=== PATIENT | male | born 1985 | race American Indian/Alaskan Native ===

== ENCOUNTER 2021-09-01 12:20 | Emergency (ER) | payer SELFPAY ==
--- NOTE | 2021-09-01 | DI.RAD.S_ITS ---
PROCEDURE: XR LUMBAR SPINE 2-3V INDICATIONS: PAIN TECHNIQUE: 2 views of the lumbar spine were acquired. COMPARISON: [facility], CR, XR THORACIC SPINE 2V, 09/01/2021, 13:30. [facility], CR, XR RIBS LT MIN 3V W CXR1V, 09/01/2021, 13:30. FINDINGS: Bones: Minimal anterior wedge deformity is seen of the T11 level, without acute features. This patient has transitional anatomy, with only 11 pairs of ribs seen on the accompanying thoracic spine plain film series. 5 [id number] vertebrae are present. There is normal bony alignment. No suspicious bony lesions. The disc heights are well preserved. Soft tissues: Overlying bowel gas pattern is normal. No suspicious soft tissue calcifications. IMPRESSION: Minimal anterior wedge deformity of T11, without acute features. Please correlate with focal tenderness. If it would be helpful for clinical management decision making, please consider a dedicated limited [id number] CT through the region. Dictated by: Alfredo Cox M.D. on 09/01/2021 at 12:52 Approved by: Alfredo Cox M.D. on 09/01/2021 at 12:54
[2021-09-01 13:01] VITALS: BP 161/98; PULSE 78; RESP 16; TEMP 36.5; O2SAT 97; BMI 24.4
--- NOTE | 2021-09-01 13:11 | ED_ITS ---
HPI - Back Pain/Injury <TUCKER Frances - Last Filed: 09/01/21 15:09> General Chief Complaint: Back Pain/Injury Stated Complaint: BACK PAIN Time Seen by Provider: 09/01/21 13:02 History of Present Illness HPI Narrative: A 36-year-old male presents to the emergency department today for left sided thoracic and lumbar pain after he fell on his mid-back while skateboarding last night. Patient denies hitting his head in the fall, states he was going up a wrap when he lost his balance went approximately 3 ft in the air and landed directly on his back in position. He reports that lying down is the most comfortable, bending forward is the worst, he reports that he has muscle spasms on the left side of his thoracic lumbar spine. He denies any weakness, he denies any loss of bowel or bladder, he denies any recent fever or illness, he denies any hematuria, shortness of breath, chest pain, dizziness, or numbness or tingling. He reports that when he bends forward his pain she is up to an 8 or 9/10, if he remains in a supine position his pain is not very bad. Related Data Previous Rx's Medication Instructions Recorded methocarbamol 500 mg tablet 500 mg PO Q8H PRN #14 tab 09/01/21 oxycodone-acetaminophen 5 mg-325 1 tab PO Q8H PRN #10 tab 09/01/21 mg tablet (Percocet) Allergies Allergy/AdvReac Type Severity Reaction Status Date / Time No Known Drug Allergies Allergy Verified 09/01/21 13:42 Review of Systems <TUCKER Frances - Last Filed: 09/01/21 15:09> Review of Systems Narrative: General: denies fever, chills Head/Neck: denies headache, neck pain Eyes: denies visual changes, eye pain Cardio: denies chest pain, palpitations Respiratory: denies shortness of breath, cough GI: denies abdominal pain, nausea, vomiting, or diarrhea : denies dysuria, hematuria MSK: denies joint pain, muscle weakness, endorses having muscle spasms on his left thoracic and lumbar spine. Skin: denies rash, itching Neuro: denies numbness, tingling Exam <TUCKER Frances - Last Filed: 09/01/21 15:09> Narrative Exam Narrative: Independently reviewed vitals signs and nursing notes. General: Awake, alert, nontoxic, no cardiorespiratory distress Head/Neck: Atraumatic, neck full range of motion Eyes: EOMI, conjunctiva normal Nose: nares patent, no rhinorrhea Mouth/Throat: moist mucus membranes, posterior pharynx normal, no oral lesions Cardio: Regular rate and rhythm, no peripheral edema Respiratory: respirations unlabored without wheezing, stridor, or rales. No retractions. GI: Abdomen soft, nontender MSK: Moves all extremities, neurovascularly intact, range of motion intact, no point tenderness over cervical, thoracic, lumbar and sacral spine, complains of muscle tenderness to the left of his thoracic and lumbar spine Skin: Normal capillary refill, no rash, no ecchymosis, no erythema, no wounds Neuro: Normal speech and cognition, normal gait Initial Vital Signs Initial Vital Signs: Vital Signs Temperature 97.7 F 09/01/21 13:01 Pulse Rate 78 09/01/21 13:01 Respiratory Rate 16 09/01/21 13:01 Blood Pressure 161/98 H 09/01/21 13:01 Pulse Oximetry 97 09/01/21 13:01 <Christopher Cornejo DO - Last Filed: 09/02/21 08:33> Initial Vital Signs Initial Vital Signs: Vital Signs Temperature 97.7 F 09/01/21 13:01 Pulse Rate 78 09/01/21 13:01 Respiratory Rate 16 09/01/21 13:01 Blood Pressure 161/98 H 09/01/21 13:01 Pulse Oximetry 97 09/01/21 13:01 Course <TUCKER Frances - Last Filed: 09/01/21 15:09> Orders Ordered: Discontinued Medications Cyclobenzaprine HCl (Cyclobenzaprine 10 Mg Tablet) 10 mg PO NOW ONE Stop: 09/01/21 13:12 Last Admin: 09/01/21 13:26 Dose: 10 mg Documented by: MADNIE Oxycodone/Acetaminophen (Oxycodone/Acetaminophen 5/325 Tablet) 1 tab PO NOW ONE Stop: 09/01/21 13:12 Last Admin: 09/01/21 13:26 Dose: 1 tab Documented by: MANDIE Vital Signs Vital signs: Vital Signs - 8 hr 09/01/21 13:01 09/01/21 14:37 Temperature 97.7 F Pulse Rate 78 64 Respiratory Rate 16 19 Blood Pressure 161/98 H 137/80 Pulse Oximetry 97 98 <Christopher Cornejo DO - Last Filed: 09/02/21 08:33> Orders Ordered: Discontinued Medications Cyclobenzaprine HCl (Cyclobenzaprine 10 Mg Tablet) 10 mg PO NOW ONE Stop: 09/01/21 13:12 Last Admin: 09/01/21 13:26 Dose: 10 mg Documented by: MANDIE Oxycodone/Acetaminophen (Oxycodone/Acetaminophen 5/325 Tablet) 1 tab PO NOW ONE Stop: 09/01/21 13:12 Last Admin: 09/01/21 13:26 Dose: 1 tab Documented by: MANDIE Vital Signs Vital signs: Vital Signs - 8 hr 09/01/21 13:01 09/01/21 14:37 Temperature 97.7 F Pulse Rate 78 64 Respiratory Rate 16 19 Blood Pressure 161/98 H 137/80 Pulse Oximetry 97 98 MDM - Back Pain/Injury <TUCKER Frances - Last Filed: 09/01/21 15:09> Imaging Data x ray thoracic: Radiologist's Impression: PROCEDURE: XR THORACIC SPINE 2V INDICATIONS: Left-sided back pain from injury last night TECHNIQUE: 2 views of the thoracic spine were acquired. COMPARISON: [facility], , XR LUMBAR SPINE 2-3V, 09/01/2021, 13:30. FINDINGS: Bones: 11 pairs of ribs are noted, and appear intact where visualized. There is minimal anterior wedge deformity seen of T10 and T11, without acute features. No suspicious lytic or blastic lesions are seen. Soft tissues: No paravertebral stripe thickening. IMPRESSION: Minimal T11 and T12 anterior wedge deformities, without acute features. If there is point tenderness (or other clinical suspicion for a fracture not seen on these images) then a dedicated limited tdrla-om-baic CT could be considered for further evaluation, if clinically appropriate. Dictated by: Alfredo Cox M.D. on 09/01/2021 at 12:54 Approved by: Alfredo Cox M.D. on 09/01/2021 at 12:55 xray ribs: Radiologist's Impression: PROCEDURE: XR RIBS LT MIN 3V W CXR1V INDICATIONS: Left-sided back pain from injury last night TECHNIQUE: 2 views of the left ribs were acquired, along with a single view chest. COMPARISON: [facility], CR, XR LUMBAR SPINE 2-3V, 09/01/2021, 13:30. [facility], CR, XR THORACIC SPINE 2V, 09/01/2021, 13:30. FINDINGS: Surgical changes and devices: None. Bones and chest wall: A marker is placed upon the area of clinical concern. Within this region, no displaced rib fracture or other significant rib abnormality can be seen. No rib fractures are seen elsewhere. No suspicious bony lesions. Overlying soft tissues appear unremarkable. Lungs and pleura: No pleural effusions or pneumothorax. Lungs appear clear. Mediastinum: Mediastinal contours appear normal. Heart size is normal. IMPRESSION: No displaced rib fracture or pneumothorax can be seen. Dictated by: Alfredo Cox M.D. on 09/01/2021 at 12:50 Approved by: Alfredo Cox M.D. on 09/01/2021 at 12:52 MDM Narrative Medical decision making narrative: 36-year-old male presents to the emergency department after falling off of a skateboard from approximately 3 ft in the air yesterday with left-sided mid back pain today with spasms. X-ray of his left ribs, thoracic and lumbar spine show no displaced rib fracture or pneumothorax, it does show a minimal anterior wedge deformity of T10 and T11 without acute features. Patient did not have any point tenderness over his thoracic or lumbar spine. Multiple etiologies of back pain considered including; Epidural abscess, cauda equina, mass occupying lesion, and other considered and are very unlikely considering that his pain is most likely due to trauma. He did not have any loss of bowel or bladder, does not have any weakness is afebrile, nontoxic appearing with full range of motion. He is sent home with Percocet and methocarbamol for muscle spasms and states understanding to follow-up at the [facility] where he has insurance within 1 week. Discharge Plan Departure Patient Disposition: Home Clinical Impression: Lumbar back pain Thoracic back pain Qualifiers: Chronicity: acute Back pain laterality: left Qualified Code(s): M54.6 - Pain in thoracic spine Instructions: DI for Back Spasm Activity Restrictions/Additional Instructions: *You have been diagnosed with a back injury, with minimal T11 and T12 anterior wedge deformities without acute features. This means may be these are from a previous injury. I am reassured that you did not have point tenderness over these vertebrae on exam. Please follow-up at the [facility] where you would like to be seen within a week for follow-up. You do not have any acute fractures. I sent 2 prescriptions over to [facility] for you to draft roller picker which should last you a week. I hope that you feel better soon, ice can be helpful, alternating with heat. Try not to lay down for too long, getting up will be way too painful. Try to stay semi mobile most of the day to avoid the painful getting up and getting moving pain. *What to do: *Please continue to take your regular medications as directed. [x] New medication prescriptions sent to your pharmacy: [[facility] Murillo ] [ ] New medication written as a paper prescription [ ] No new medications given *Please follow up with your primary care provider in 2-3 days, call for an appointment. Let them know you were seen in the Emergency Department and that we ask that you be seen in follow up. We will electronically transmit a record of today's note if your PCP is in our system *If you do not have a primary care provider please contact the [facility] Resource line at [phone]. They will ask some questions about your medical history and help get you set up with a doctor in the community. *Return to Emergency Department if you should have any new, worsening or concerning symptoms, such as [fever greater than 101F, chills, worsening pain, persistent vomiting or other bothersome symptoms] PROCEDURE: XR THORACIC SPINE 2V INDICATIONS: Left-sided back pain from injury last night TECHNIQUE: 2 views of the thoracic spine were acquired. COMPARISON: [facility], CR, XR LUMBAR SPINE 2-3V, 09/01/2021, 13:30. FINDINGS: Bones: 11 pairs of ribs are noted, and appear intact where visualized. There is minimal anterior wedge deformity seen of T10 and T11, without acute features. No suspicious lytic or blastic lesions are seen. Soft tissues: No paravertebral stripe thickening. IMPRESSION: Minimal T11 and T12 anterior wedge deformities, without acute features. If there is point tenderness (or other clinical suspicion for a fracture not seen on these images) then a dedicated limited [id number]-[id number] CT could be considered for further evaluation, if clinically appropriate. Dictated by: Alfredo Cox M.D. on 09/01/2021 at 12:54 Approved by: Alfredo Cox M.D. on 09/01/2021 at 12:[address] [id number] ReportSigned Patient: Nghia Lopez PMR#: [id number]: 1985Acct:[id number]/Sex: 36 / MDate of Service: 09/01/21Loc: EDAccession Number: [id number] Procedure: XR lumbar spine 2-3V Ordering Provider: Suki Chappell PROCEDURE: XR LUMBAR SPINE 2-3V INDICATIONS: PAIN TECHNIQUE: 2 views of the lumbar spine were acquired. COMPARISON: [facility], CR, XR THORACIC SPINE 2V, 09/01/2021, 13:30. [facility], CR, XR RIBS LT MIN 3V W CXR1V, 09/01/2021, 13:30. FINDINGS: Bones: Minimal anterior wedge deformity is seen of the T11 level, without acute features. This patient has transitional anatomy, with only 11 pairs of ribs seen on the accompanying thoracic spine plain film series. 5 [id number]-[id number]-[id number] vertebrae are present. There is normal bony alignment. No suspicious bony lesions. The disc heights are well preserved. Soft tissues: Overlying bowel gas pattern is normal. No suspicious soft tissue calcifications. IMPRESSION: Minimal anterior wedge deformity of T11, without acute features. Please correlate with focal tenderness. If it would be helpful for clinical management decision making, please consider a dedicated limited [id number]-du-jaeo CT through the region. Dictated by: Alfredo Cox M.D. on 09/01/2021 at 12:52 Approved by: Alfredo Cox M.D. on 09/01/2021 at 12:54 Prescriptions: New oxycodone-acetaminophen [Percocet] 5-325 mg tablet 1 tab PO Q8H PRN (Reason: pain) Qty: 10 RF: 0 methocarbamol 500 mg tablet 500 mg PO Q8H PRN (Reason: muscle spasm) Qty: 14 RF: 0 Referrals: Lorelei Hall MD [Primary Care Provider] - <Christopher Cornejo DO - Last Filed: 09/02/21 08:33> Cosign ED Attending Griffinature Attestation: I was immediately available in the department for consultation. This documentation has been reviewed and I agree with assessment and plan. Supervised by Christopher Cornejo DO
[2021-09-01] MEDS: OXYCODONE/ACETAMINOPHEN 5/325 TABLET 1 TAB PO (13:26)
[2021-09-01] MEDS: CYCLOBENZAPRINE 10 MG TABLET PO (13:26)
[2021-09-01 14:37] VITALS: BP 137/80; PULSE 64; RESP 19; O2SAT 98
== END 2021-09-01 14:40 | disposition home or self-care (01) ==
PROVIDERS: Emergency Provider Nurse Practitioner Critical Care Medicine; PCP Family Medicine
DX: M54.50 Low back pain, unspecified (principal); M54.6 Pain in thoracic spine; V00.131A Fall from skateboard, initial encounter
CPT/HCPCS: 71101; 72070; 72100; 99283

== ENCOUNTER 2022-06-19 18:28 | Emergency (ER) | payer SELFPAY ==
[2022-06-19 18:30] VITALS: BP 159/87; PULSE 71; RESP 16; TEMP 37.3; O2SAT 99; BMI 24.4
--- NOTE | 2022-06-19 18:41 | DI.RAD.S_ITS ---
PROCEDURE: XR CHEST 1V INDICATIONS: chest pain TECHNIQUE: One view of the chest was acquired. COMPARISON: [facility], CR, XR THORACIC SPINE 2V, 09/01/2021, 13:30. FINDINGS: Surgical changes and devices: None. Lungs and pleura: Lungs are clear. No pleural effusions or pneumothorax. Mediastinum: Mediastinal contours appear normal. Heart size is normal. Bones and chest wall: No suspicious bony lesions. Overlying soft tissues appear unremarkable. IMPRESSION: No acute cardiopulmonary abnormality. Dictated by: Jam Chester M.D. on 06/19/2022 at 20:19 Approved by: Jam Chester M.D. on 06/19/2022 at 20:21
--- NOTE | 2022-06-19 18:48 | DI.CT.S_ITS ---
PROCEDURE: CT HEAD/BRAIN WO CON INDICATIONS: Seizure like activity + LOC TECHNIQUE: Noncontrast 4.5 mm thick angled axial sections acquired from the foramen magnum to the vertex, with coronal and sagittal reformats. For radiation dose reduction, the following was used: automated exposure control, adjustment of mA and/or kV according to patient size. COMPARISON: None. FINDINGS: Image quality: Excellent. CSF spaces: Basal cisterns are patent. No extra-axial fluid collections. Ventricles are normal in size and shape. Brain: No midline shift. No intracranial masses or hemorrhage. Donnelly-white matter interface is normal. Skull and face: Calvarium and visualized facial bones are intact, without suspicious lesions. Sinuses: Visualized sinuses and mastoids are clear. IMPRESSION: No acute intracranial abnormality. Dictated by: Jam Chester M.D. on 06/19/2022 at 19:11 Approved by: Jam Chester M.D. on 06/19/2022 at 19:13
--- NOTE | 2022-06-19 18:54 | ED_ITS ---
HPI - Syncope General Chief Complaint: Syncope Stated Complaint: Fainted, EMS advised to come in Time Seen by Provider: 06/19/22 18:38 Source: patient Mode of arrival: Ambulatory Limitations: no limitations History of Present Illness HPI narrative: This is a 36-year-old male with no pertinent past medical history presenting to the emergency department due to a LOC just prior to arrival. Patient states that he was eating dinner with some friends after smoking marijuana and had an episode of LOC although he is ?was having a clear thought the whole time?. He also states that his patient's described him as being ?clenched up?. Patient states that he has been seen by his primary care provider for vague sensation of a right side abdominal discomfort for the last few days were his primary care prior do urinalysis which showed hematuria and advised to take ibuprofen for suspected kidney stones. Patient does not report any injuries to the extremities. Denies any chest pain, shortness of breath, nausea, vomiting, or any other concerning signs or symptoms. No history of previous loss of consciousness or seizures in the past. Related Data Previous Rx's Medication Instructions Recorded methocarbamol 500 mg tablet 500 mg PO Q8H PRN muscle spasm #14 09/01/21 tabs oxycodone-acetaminophen 5 mg-325 1 tab PO Q8H PRN pain #10 tabs 09/01/21 mg tablet (Percocet) Allergies Allergy/AdvReac Type Severity Reaction Status Date / Time No Known Drug Allergies Allergy Verified 09/01/21 13:42 Review of Systems Review of Systems Narrative: GENERAL: Denies chills, fatigue, malaise, fever, sweats. HEENT: Denies sinus pain, ear pain, sore throat, difficulty swallowing, dizziness. RESPIRATORY: Denies dyspnea, cough, wheezing, hemoptysis, sputum. CARDIOVASCULAR: Denies chest pain, palpitations, orthopnea, edema, GASTROINTESTINAL: Denies nausea, vomiting, abdominal pain, diarrhea, constipation, melena. : Denies dysuria, frequency, incontinence, hematuria, urinary retention. MUSCULOSKELETAL: denies weakness, joint pain, or bony pain SKIN: Denies rash, skin lesions, or other NEUROLOGIC: Reports loss of consciousness. Denies weakness, headache, numbness, change in speech, confusion, incoordination. PSYCHIATRIC: No concerning psychosocial issues. 12 point review of systems is negative except for those stated above Patient History Social History Smoking Status: Never smoker Smoking Status: Never smoker alcohol intake frequency: a few times a week Substance Use Type: marijuana Exam Narrative Exam Narrative: GENERAL: Well-developed patient, in mild distress. HEAD: Atraumatic. Normocephalic. EYES: Pupils equal round and reactive. Extraocular motions intact. No scleral icterus. No injection or drainage. ENT: Nose without bleeding, purulent drainage. Throat without erythema, tonsillar hypertrophy or exudate. Airway patent. NECK: Trachea midline. Non tender CARDIOVASCULAR: Regular rate and rhythm without murmurs, gallops, or rubs. RESPIRATORY: Clear to auscultation. Breath sounds equal bilaterally. No wheezes, rales, or rhonchi. GASTROINTESTINAL: Abdomen soft, non-tender, nondistended. EXTREMITIES: No edema or joint tenderness. BACK: Nontender without deformity or crepitance. No flank tenderness. NEURO: AOx3. Cranial nerves 2-12 intact. No focal neuro deficits noted on exam. SKIN: No rash or erythema of visible areas Initial Vital Signs Initial Vital Signs: Vital Signs Temperature 99.1 F 06/19/22 18:30 Pulse Rate 71 06/19/22 18:30 Respiratory Rate 16 06/19/22 18:30 Blood Pressure 159/87 H 06/19/22 18:30 Pulse Oximetry 99 06/19/22 18:30 Oxygen Delivery Method 06/19/22 18:30 Course Orders Ordered: ED Orders 06/19/22 18:40 Complete Blood Count AUTO DIFF Stat Comprehensive Metabolic Panel Stat Lipase Stat Magnesium Stat Partial Thromboplastin Time Stat Prothrombin Time INR Stat Troponin & CK Cardiac Panel Stat 06/19/22 18:41 XR chest 1V Stat EKG-12 Lead Stat 06/19/22 18:48 CT head/brain wo con Stat Complete Blood Count AUTO DIFF Stat Comprehensive Metabolic Panel Stat Urine Drug Screen, Rapid Stat EKG-12 Lead Stat Vital Signs Vital signs: Vital Signs - 8 hr 06/19/22 18:30 06/19/22 20:19 Temperature 99.1 F Pulse Rate 71 65 Respiratory Rate 16 16 Blood Pressure 159/87 H Pulse Oximetry 99 98 Oxygen Delivery Method Room Air Room Air MDM - Syncope Lab Data Result diagrams: 06/19/22 18:40 06/19/22 18:40 Labs: Lab Results 06/19/22 06/19/22 06/19/22 Range/Units 18:40 18:40 18:40 WBC 6.8 (4.5-11.0) X10^3/uL RBC 4.09 L (4.5-5.9) X10^6/uL Hgb 13.7 (13.5-17.5) g/dL Hct 40.2 L (41-53) % MCV 98.2 (80-100) fL MCH 33.5 (26-34) PG MCHC 34.2 (30-36) % RDW 13.1 (11.6-14.8) % Plt Count 200 (150-400) X10^3/uL Neut % (Auto) 68.7 (50-75) % Lymph % (Auto) 24.5 L (25-40) % [place] % (Auto) 4.1 (3-14) % Eos % (Auto) 2.0 (2-4) % Baso % (Auto) 0.7 (0-2) % Neut # (Auto) 4700 (9049-7312) /uL Lymph # (Auto) 1700 (1288-3315) /uL [place] # (Auto) 300 (0-900) /uL Eos # (Auto) 100 (0-450) /uL Baso # (Auto) 0 (0-100) /uL PT 12.5 (10.1-12.7) SECONDS INR 1.1 (0.9-1.3) APTT 27 (26.4-36.2) SECONDS Sodium 134 L (137-145) mmol/L Potassium 3.7 (3.4-5.1) mmol/L Chloride 104 (98-107) mmol/L Carbon Dioxide 25 (22-32) mmol/L BUN 18 (9-20) mg/dL Creatinine 0.80 (0.66-1.25) mg/dL Estimated GFR > 60 (>60) mL/min BUN/Creatinine Ratio 22.5 H (6-22) Glucose 190 H (70-100) mg/dL Calcium 8.5 (8.4-10.2) mg/dL Magnesium 1.9 (1.6-2.3) mg/dL Total Bilirubin 0.6 (0.2-1.3) mg/dL AST 30 (17-59) IU/L ALT 24 (<50) IU/L Alkaline Phosphatase 54 (38-126) U/L Total Creatine Kinase 142 (55-170) U/L CK-MB (CK-2) 1.89 (<2.37) ng/mL CK-MB (CK-2) Rel Index 1.3 L (1.5-5.0) % Troponin I < 0.012 (0.01-0.034) ng/mL Total Protein 7.0 (6.3-8.2) g/dL Albumin 4.3 (3.5-5.0) g/dL Globulin 2.7 (1.7-4.1) g/dL Albumin/Globulin Ratio 1.6 (1.0-2.8) Lipase 111 (23-300) U/L U Opiates 300ng/mL cut (Negative) Ur Oxycodone Screen (Negative) Urine Methadone Screen (Negative) Ur Barbiturates Screen (Negative) U Tricyclic Antidepress (Negative) Ur Phencyclidine Scrn (Negative) Ur Amphetamines Screen (Negative) U Methamphetamines Scrn (Negative) Ur MDMA Scrn (Ecstasy) (Negative) U Benzodiazepines Scrn (Negative) Urine Cocaine Screen (Negative) U Marijuana (THC) Screen (Negative) 06/19/22 Range/Units 19:19 WBC (4.5-11.0) X10^3/uL RBC (4.5-5.9) X10^6/uL Hgb (13.5-17.5) g/dL Hct (41-53) % MCV (80-100) fL MCH (26-34) PG MCHC (30-36) % RDW (11.6-14.8) % Plt Count (150-400) X10^3/uL Neut % (Auto) (50-75) % Lymph % (Auto) (25-40) % [place] % (Auto) (3-14) % Eos % (Auto) (2-4) % Baso % (Auto) (0-2) % Neut # (Auto) (9588-1790) /uL Lymph # (Auto) (7677-6918) /uL [place] # (Auto) (0-900) /uL Eos # (Auto) (0-450) /uL Baso # (Auto) (0-100) /uL PT (10.1-12.7) SECONDS INR (0.9-1.3) APTT (26.4-36.2) SECONDS Sodium (137-145) mmol/L Potassium (3.4-5.1) mmol/L Chloride (98-107) mmol/L Carbon Dioxide (22-32) mmol/L BUN (9-20) mg/dL Creatinine (0.66-1.25) mg/dL Estimated GFR (>60) mL/min BUN/Creatinine Ratio (6-22) Glucose (70-100) mg/dL Calcium (8.4-10.2) mg/dL Magnesium (1.6-2.3) mg/dL Total Bilirubin (0.2-1.3) mg/dL AST (17-59) IU/L ALT (<50) IU/L Alkaline Phosphatase (38-126) U/L Total Creatine Kinase (55-170) U/L CK-MB (CK-2) (<2.37) ng/mL CK-MB (CK-2) Rel Index (1.5-5.0) % Troponin I (0.01-0.034) ng/mL Total Protein (6.3-8.2) g/dL Albumin (3.5-5.0) g/dL Globulin (1.7-4.1) g/dL Albumin/Globulin Ratio (1.0-2.8) Lipase (23-300) U/L U Opiates 300ng/mL cut Negative (Negative) Ur Oxycodone Screen Negative (Negative) Urine Methadone Screen Negative (Negative) Ur Barbiturates Screen Negative (Negative) U Tricyclic Antidepress Negative (Negative) Ur Phencyclidine Scrn Negative (Negative) Ur Amphetamines Screen Negative (Negative) U Methamphetamines Scrn Negative (Negative) Ur MDMA Scrn (Ecstasy) Negative (Negative) U Benzodiazepines Scrn Negative (Negative) Urine Cocaine Screen Negative (Negative) U Marijuana (THC) Screen Positive H (Negative) Imaging Data CT scan - head: Radiologist's Impression: [address] [address] [address] Scan Report Signed Patient: Nghia Lopez MR#: [id number] : 1985 Acct:[id number] Age/Sex: 36 / M Date of Service: 06/19/22 Loc: ED Accession Number: [id number] ?? Procedure: CT head/brain wo con Ordering Provider: Kd Blas P.A-C PROCEDURE:? CT HEAD/BRAIN WO CON ? INDICATIONS:? Seizure like activity + LOC ? TECHNIQUE:? Noncontrast 4.5 mm thick angled axial sections acquired from the foramen magnum to the vertex, with coronal and sagittal reformats.? For radiation dose reduction, the following was used:? automated exposure control, adjustment of mA and/or kV according to patient size.? ? COMPARISON:? None. ? FINDINGS:? Image quality:? Excellent.? ? CSF spaces:? Basal cisterns are patent.? No extra-axial fluid collections.? Ventricles are normal in size and shape.? ? Brain:? No midline shift.? No intracranial masses or hemorrhage.? Donnelly-white matter interface is normal.? ? Skull and face:? Calvarium and visualized facial bones are intact, without suspicious lesions.? ? Sinuses:? Visualized sinuses and mastoids are clear.? ? IMPRESSION:? No acute intracranial abnormality. ? ? Dictated by: Jam Chester M.D. on 06/19/2022 at 19:11 ? ? Approved by: Jam Chester M.D. on 06/19/2022 at 19:13 ? Chest x-ray: Radiologist's Impression: [place] [address] XRay Report Signed Patient: Nghia Lopez MR#: [id number] : 1985 Acct:[id number] Age/Sex: 36 / M Date of Service: 06/19/22 Loc: ED Accession Number: [id number] ?? Procedure: XR chest 1V Ordering Provider: Kd Blas P.A-C PROCEDURE:? XR CHEST 1V ? INDICATIONS:? chest pain ? TECHNIQUE:? One view of the chest was acquired.? ? COMPARISON:? [facility], [facility], XR THORACIC SPINE 2V, 09/01/2021, 13:30. ? FINDINGS:? ? Surgical changes and devices:? None.? ? Lungs and pleura:? Lungs are clear.? No pleural effusions or pneumothorax.? ? Mediastinum:? Mediastinal contours appear normal.? Heart size is normal.? ? Bones and chest wall:? No suspicious bony lesions.? Overlying soft tissues appear unremarkable.? ? IMPRESSION:? No acute cardiopulmonary abnormality. ? ? ? Dictated by: Jam Chester M.D. on 06/19/2022 at 20:19 ? ? Approved by: Jam Chester M.D. on 06/19/2022 at 20:21 ? ECG Data Interpretation: EKG is normal sinus rhythm rate 66 and free of any signs of ischemia or ectopy. No ST segmental elevation or depression. No T wave inversions MDM Narrative Medical decision making narrative: This is an otherwise the healthy 36-year-old male presents to the emergency department due to loss of consciousness just prior to arrival. Patient describes a vague history of being ?clenched up? during loss of consciousness although describes no other symptoms concerning for possible seizure. Patient did not describe any chest pain concerning for ACS and did not describe any focal neuro deficits concerning for CVA. Lab work was unremarkable. Troponin within normal limits. CT head showed no evidence of intracranial abnormality. EKG showed no evidence of cardiac abnormality. No evidence anemia, infection, electrolyte deficiency or any other lab work in abnormality. UDS positive for only marijuana as patient described. Discharge Plan Departure Patient Disposition: Home Clinical Impression: Vasovagal syncope Instructions: DI for Syncope in Adults (Fainting) Activity Restrictions/Additional Instructions: Thank you for coming to the [facility] Emergency Department today. Your CT head and chest x-ray were unremarkable. There is no evidence of any kind of brain bleed or lung abnormality. The EKG showed no evidence of any kind of heart attack. Your lab work was also showing no acute abnormalities. I recommend you continue to rest to you feel better. Please follow-up with your primary care provider as you have been doing for the workup of the possible kidney stone you have. I hope you feel better soon. Prescriptions: No Action oxycodone-acetaminophen [Percocet] 5-325 mg tablet 1 tab PO Q8H PRN (Reason: pain) Qty: 10 0RF methocarbamol 500 mg tablet 500 mg PO Q8H PRN (Reason: muscle spasm) Qty: 14 0RF Referrals: Lorelei Hall MD [Primary Care Provider] -
[2022-06-19 18:56] LABS: Add Manual Diff / Slide Review NO; Basophils Absolute Auto 0 /uL (0-100); Basophils Percent Auto 0.7 % (0-2); Eosinophils Absolute Auto 100 /uL (0-450); Hematocrit 40.2 % (41-53); Hemoglobin 13.7 g/dL (13.5-17.5); Lymphocytes Absolute Auto 1700 /uL (1100-4500); Lymphocytes Percent Auto 24.5 % (25-40); Mean Corpuscular HGB Conc 34.2 % (30-36); Mean Corpuscular Hemoglobin 33.5 PG (26-34); Mean Corpuscular Volume 98.2 fL (80-100); Monocytes Absolute Auto 300 /uL (0-900); Monocytes Percent Auto 4.1 % (3-14); Neutrophils Absolute Auto 4700 /uL (1500-7000); Neutrophils Percent Auto 68.7 % (50-75); Platelet Count 200 X10^3/uL (150-400); Red Blood Cell Count 4.09 X10^6/uL (4.5-5.9); Red Cell Distribution Width 13.1 % (11.6-14.8); White Blood Cell Count 6.8 X10^3/uL (4.5-11.0)
[2022-06-19 18:57] LABS: INR 1.1 (0.9-1.3); Prothrombin Time 12.5 SECONDS (10.1-12.7)
[2022-06-19 19:00] LABS: PTT Partial Thromboplastin Tim 27 SECONDS (26.4-36.2)
[2022-06-19 19:04] LABS: Alanine Aminotransferase 24 IU/L (<50); Albumin 4.3 g/dL (3.5-5.0); Albumin Globulin Ratio 1.6 (1.0-2.8); Alkaline Phosphatase 54 U/L (38-126); Aspartate Aminotransferase 30 IU/L (17-59); BUN Creatinine Ratio 22.5 (6-22); Bilirubin Total 0.6 mg/dL (0.2-1.3); Blood Urea Nitrogen 18 mg/dL (9-20); Calcium 8.5 mg/dL (8.4-10.2); Carbon Dioxide 25 mmol/L (22-32); Chloride 104 mmol/L (98-107); Creatine Kinase 142 U/L (55-170); Estimated Glomerular Filt Rate > 60 mL/min (>60); Globulin 2.7 g/dL (1.7-4.1); Glucose 190 mg/dL (70-100); HEMOLYSIS < 15 (0-50); Lipase 111 U/L (23-300); Magnesium 1.9 mg/dL (1.6-2.3); Potassium 3.7 mmol/L (3.4-5.1); Sodium 134 mmol/L (137-145)
[2022-06-19 19:14] LABS: Troponin I < 0.012 ng/mL (0.01-0.034)
[2022-06-19 19:18] LABS: CKMB % Relative Index 1.3 % (1.5-5.0); Creatine Kinase MB 1.89 ng/mL (<2.37)
[2022-06-19 19:31] LABS: UR Morphine/Opiate cutoff 300 Negative (Negative); Ur Creatinine Normal (Normal); Ur Specific Gravity Normal (Normal); Urine Amphetamines Negative (Negative); Urine Barbiturates Negative (Negative); Urine Benzodiazepines Negative (Negative); Urine Cocaine Negative (Negative); Urine MDMA Negative (Negative); Urine Methadone Negative (Negative); Urine Methamphetamines Negative (Negative); Urine Oxycodone Negative (Negative); Urine Phencyclidine Negative (Negative); Urine Tetrahydrocannabinol Positive (Negative); Urine Tricyclic Antidepressant Negative (Negative); Urine pH Normal (Normal)
[2022-06-19 20:19] VITALS: PULSE 65; RESP 16; O2SAT 98
== END 2022-06-19 20:25 | disposition home or self-care (01) ==
PROVIDERS: Emergency Provider Physician Assistant Medical; PCP Family Medicine
DX: R55 Syncope and collapse (principal); R07.9 Chest pain, unspecified; R56.9 Unspecified convulsions
CPT/HCPCS: 36415; 70450; 71045; 80053; 80305; 82550; 82553; 83690; 83735; 84484; 85025; 85610; 85730; 93005; 93010; 99284

== ENCOUNTER 2022-07-03 10:03 | Emergency (ER) | payer SELFPAY ==
[2022-07-03 10:07] VITALS: BP 158/112; PULSE 72; RESP 14; TEMP 36.2; O2SAT 99; BMI 24.4
[2022-07-03 10:45] LABS: Add Manual Diff / Slide Review NO; Basophils Absolute Auto 0 /uL (0-100); Basophils Percent Auto 0.8 % (0-2); Eosinophils Absolute Auto 100 /uL (0-450); Eosinophils Percent Auto 1.9 % (2-4); Hematocrit 43.8 % (41-53); Hemoglobin 15.4 g/dL (13.5-17.5); Lymphocytes Absolute Auto 1400 /uL (1100-4500); Mean Corpuscular HGB Conc 35.1 % (30-36); Mean Corpuscular Hemoglobin 34.2 PG (26-34); Mean Corpuscular Volume 97.4 fL (80-100); Monocytes Absolute Auto 300 /uL (0-900); Monocytes Percent Auto 5.6 % (3-14); Neutrophils Absolute Auto 4200 /uL (1500-7000); Neutrophils Percent Auto 68.7 % (50-75); Platelet Count 194 X10^3/uL (150-400); White Blood Cell Count 6.1 X10^3/uL (4.5-11.0)
[2022-07-03 11:07] LABS: Chloride 102 mmol/L (98-107); HEMOLYSIS < 15 (0-50)
[2022-07-03 11:09] LABS: Alanine Aminotransferase 29 IU/L (<50); Albumin 4.6 g/dL (3.5-5.0); Albumin Globulin Ratio 1.5 (1.0-2.8); Alkaline Phosphatase 67 U/L (38-126); Aspartate Aminotransferase 28 IU/L (17-59); BUN Creatinine Ratio 25.3 (6-22); Bilirubin Total 0.5 mg/dL (0.2-1.3); Blood Urea Nitrogen 20 mg/dL (9-20); Calcium 8.7 mg/dL (8.4-10.2); Carbon Dioxide 27 mmol/L (22-32); Estimated Glomerular Filt Rate > 60 mL/min (>60); Globulin 3.1 g/dL (1.7-4.1); Glucose 111 mg/dL (70-100); Lipase 56 U/L (23-300); Potassium 4.8 mmol/L (3.4-5.1); Sodium 137 mmol/L (137-145); Total Protein 7.7 g/dL (6.3-8.2)
--- NOTE | 2022-07-03 12:21 | DI.CT.S_ITS ---
PROCEDURE: CT ABDOMEN PELVIS W CON INDICATIONS: rlq pain, feels week, hematuria TECHNIQUE: After the administration of intravenous contrast, axial sections acquired from the lung bases to the pubic symphysis. Coronal and sagittal reformats were performed. For radiation dose reduction, the following was used: automated exposure control, adjustment of mA and/or kV according to patient size. COMPARISON: None. FINDINGS: Image quality: Excellent. Lung bases: Unremarkable. Heart: No significant findings. ABDOMEN: Liver: Unremarkable. Gallbladder: Unremarkable. Biliary ducts: Unremarkable. Pancreas: Unremarkable. Spleen: Unremarkable. Adrenal Glands: Unremarkable. Kidneys and Ureters: Unremarkable. Stomach and Bowel: Scattered diverticulosis without evidence of diverticulitis. Peritoneum: No abnormal intraperitoneal fluid. No free air. Ventral Wall: No hernias. Abdominal Nodes: No retroperitoneal or mesenteric adenopathy by size criteria. Vessels: Aorta and inferior vena cava are normal in size. PELVIS: Pelvic Organs: Unremarkable. Bladder: Unremarkable. Pelvic Nodes: No enlarged lymph nodes. Miscellaneous: No hernias are seen. Bones: Unremarkable. IMPRESSION: 1. No findings which explain the patient's right lower quadrant pain. 2. Mild diverticulosis. Dictated by: Boby Domínguez M.D. on 07/03/2022 at 14:09 Approved by: Boby Domínguez M.D. on 07/03/2022 at 14:13
[2022-07-03] MEDS: SODIUM CHLORIDE 0.9% 500 ML 1000 ML IV (13:04)
--- NOTE | 2022-07-03 13:08 | ED_ITS ---
HPI - Abdominal Pain <TUCKER Frances - Last Filed: 07/03/22 15:47> General Chief Complaint: Abdominal Pain Stated Complaint: ABD PAIN LOWER RIGHT SIDE Time Seen by Provider: 07/03/22 12:20 Source: patient Mode of arrival: Ambulatory History of Present Illness HPI narrative: This is a 36-year-old male with no pertinent past medical history presenting to the emergency department?for ongoing right inguinal pain and hematuria with concern for kidney stones. Patient states that he has been seen by his primary care provider for vague sensation of a right side abdominal discomfort approximately 3-4 weeks ago and his primary care provider completed a urinalysis which showed hematuria and was advised to take ibuprofen for suspected kidney stones.?This was a few weeks ago. Patient was seen in the emergency department on 06/19/2022 for syncope and had this pain at that time without any abdominal imaging. Patient denies any nausea vomiting or changes to her stool, denies any STIs. Denies any chest pain, shortness of breath, nausea, vomiting, or any other concerning signs or symptoms.??He states that his pain has only gotten worse, he feels fatigued, and nauseated but had vomiting. Patient denies any blood in his stool but endorses having hemorrhoids, internal hemorrhoids and sometimes there external which is causing rectal pain. He denies having chills, denies any new sexual partners, denies any history of abdominal surgery or this pain in the past. Related Data Previous Rx's Medication Instructions Recorded methocarbamol 500 mg tablet 500 mg PO Q8H PRN muscle spasm #14 09/01/21 tabs oxycodone-acetaminophen 5 mg-325 1 tab PO Q8H PRN pain #10 tabs 09/01/21 mg tablet (Percocet) amoxicillin 875 mg-potassium 1 tab PO BID 7 days #14 tabs 07/03/22 clavulanate 125 mg tablet hydrocortisone acetate 25 mg 25 mg RI Q12H PRN hemorrhoids 2 07/03/22 rectal suppository weeks #12 ea Allergies Allergy/AdvReac Type Severity Reaction Status Date / Time No Known Drug Allergies Allergy Verified 07/03/22 10:09 Review of Systems <TUCKER Frances - Last Filed: 07/03/22 15:47> Review of Systems Narrative: Review of systems is negative for acute abnormalities unless otherwise noted in HPI Patient History <TUCKER Frances - Last Filed: 07/03/22 15:47> Social History Smoking Status: Never smoker Smoking Status: Never smoker alcohol intake frequency: holidays/special occasions only Substance Use Type: marijuana Exam <TUCKER Frances - Last Filed: 07/03/22 15:47> Narrative Exam Narrative: Reviewed vitals signs and nursing notes. General: cooperative, comfortable, in no acute distress, well groomed HEENT: symmetrical facial expressions, moist mucous membranes Cardiovascular: regular rate and rhythm, no peripheral edema, warm extremities Respiratory: normal effort, able to speak in complete sentences, without wheezing, stridor, or abnormal breath sounds. No retractions or tachypnea. GI: abdomen soft, tender to palpation in his right inguinal region, Rovsing's negative psoas sign negative, no tenderness at for McBurney point, nondistended, without masses, rebound tenderness or exquisite tenderness with exam. CVA tenderness on the right External hemorrhoids are present without signs of infection, they are soft. Without scrotal edema or unilateral changes, exam without abnormality or tenderness. MSK: moves all extremities, neurovascularly intact, no weakness, normal tone Skin: brisk capillary refill, without pallor or erythema Neuro: normal speech and cognition, A&O x3, ambulatory, clear speech Psych: mental status is grossly normal, congruent mood, normal affect, pleasant and cooperative Initial Vital Signs Initial Vital Signs: Vital Signs Temperature 97.1 F L 07/03/22 10:07 Pulse Rate 72 07/03/22 10:07 Respiratory Rate 14 07/03/22 10:07 Blood Pressure 158/112 H 07/03/22 10:07 Pulse Oximetry 99 07/03/22 10:07 Oxygen Delivery Method 07/03/22 10:07 <Nahomy Foreman DO - Last Filed: 07/09/22 08:12> Initial Vital Signs Initial Vital Signs: Vital Signs Temperature 97.1 F L 07/03/22 10:07 Pulse Rate 72 07/03/22 10:07 Respiratory Rate 14 07/03/22 10:07 Blood Pressure 158/112 H 07/03/22 10:07 Pulse Oximetry 99 07/03/22 10:07 Oxygen Delivery Method 07/03/22 10:07 Course <TUCKER Frances - Last Filed: 07/03/22 15:47> Orders Ordered: Discontinued Medications Amoxicillin/Clavulanate Potassium (Amoxicillin/Clav 875/125 Mg) 1 tab PO NOW ONE Stop: 07/03/22 14:34 Last Admin: 07/03/22 14:46 Dose: 1 tab Documented By: AT Sodium Chloride (Normal Saline 0.9%) 500 mls @ 1,000 mls/hr IV BOLUS ONE Stop: 07/03/22 13:20 Last Infusion: 07/03/22 14:43 Dose: 0 mls/hr Documented By: Admin: 07/03/22 13:04 Dose: 1,000 mls/hr Documented By: LISA Ketorolac Tromethamine (Ketorolac 30 Mg/Ml Vial) 30 mg IV NOW ONE Stop: 07/03/22 12:52 Last Admin: 07/03/22 14:22 Dose: Not Given Documented By: MERVIN Ondansetron HCl (Ondansetron 4 Mg/2 Ml Inj) 4 mg IV NOW ONE Stop: 07/03/22 12:52 Last Admin: 07/03/22 14:22 Dose: Not Given Documented By: MERVIN Oxycodone/Acetaminophen (Oxycodone/Acetaminophen 5/325 Tablet) 2 tab PO NOW ONE Stop: 07/03/22 12:52 Last Admin: 07/03/22 14:22 Dose: Not Given Documented By: MERVIN Vital Signs Vital signs: Vital Signs - 8 hr 07/03/22 10:07 07/03/22 14:56 Temperature 97.1 F L Pulse Rate 72 67 Respiratory Rate 14 18 Blood Pressure 158/112 H 155/95 H Pulse Oximetry 99 99 Oxygen Delivery Method Room Air Room Air <Nahomy Foreman DO - Last Filed: 07/09/22 08:12> Orders Ordered: Discontinued Medications Amoxicillin/Clavulanate Potassium (Amoxicillin/Clav 875/125 Mg) 1 tab PO NOW ONE Stop: 07/03/22 14:34 Last Admin: 07/03/22 14:46 Dose: 1 tab Documented By: AT Sodium Chloride (Normal Saline 0.9%) 500 mls @ 1,000 mls/hr IV BOLUS ONE Stop: 07/03/22 13:20 Last Infusion: 07/03/22 14:43 Dose: 0 mls/hr Documented By: Admin: 07/03/22 13:04 Dose: 1,000 mls/hr Documented By: LISA Ketorolac Tromethamine (Ketorolac 30 Mg/Ml Vial) 30 mg IV NOW ONE Stop: 07/03/22 12:52 Last Admin: 07/03/22 14:22 Dose: Not Given Documented By: MERVIN Ondansetron HCl (Ondansetron 4 Mg/2 Ml Inj) 4 mg IV NOW ONE Stop: 07/03/22 12:52 Last Admin: 07/03/22 14:22 Dose: Not Given Documented By: MERVIN Oxycodone/Acetaminophen (Oxycodone/Acetaminophen 5/325 Tablet) 2 tab PO NOW ONE Stop: 07/03/22 12:52 Last Admin: 07/03/22 14:22 Dose: Not Given Documented By: MERVIN Vital Signs Vital signs: Vital Signs - 8 hr 07/03/22 10:07 07/03/22 14:56 Temperature 97.1 F L Pulse Rate 72 67 Respiratory Rate 14 18 Blood Pressure 158/112 H 155/95 H Pulse Oximetry 99 99 Oxygen Delivery Method Room Air Room Air MDM - Abdominal Pain <TUCKER Frances - Last Filed: 07/03/22 15:47> Lab Data Result diagrams: 07/03/22 10:30 07/03/22 10:30 Labs: Lab Results 07/03/22 07/03/22 07/03/22 Range/Units 10:30 10:30 11:59 WBC 6.1 (4.5-11.0) X10^3/uL RBC 4.50 (4.5-5.9) X10^6/uL Hgb 15.4 (13.5-17.5) g/dL Hct 43.8 (41-53) % MCV 97.4 (80-100) fL MCH 34.2 H (26-34) PG MCHC 35.1 (30-36) % RDW 13.0 (11.6-14.8) % Plt Count 194 (150-400) X10^3/uL Neut % (Auto) 68.7 (50-75) % Lymph % (Auto) 23.0 L (25-40) % [place] % (Auto) 5.6 (3-14) % Eos % (Auto) 1.9 L (2-4) % Baso % (Auto) 0.8 (0-2) % Neut # (Auto) 4200 (9056-7022) /uL Lymph # (Auto) 1400 (8691-9755) /uL [place] # (Auto) 300 (0-900) /uL Eos # (Auto) 100 (0-450) /uL Baso # (Auto) 0 (0-100) /uL Sodium 137 (137-145) mmol/L Potassium 4.8 (3.4-5.1) mmol/L Chloride 102 (98-107) mmol/L Carbon Dioxide 27 (22-32) mmol/L BUN 20 (9-20) mg/dL Creatinine 0.79 (0.66-1.25) mg/dL Estimated GFR > 60 (>60) mL/min BUN/Creatinine Ratio 25.3 H (6-22) Glucose 111 H (70-100) mg/dL Calcium 8.7 (8.4-10.2) mg/dL Total Bilirubin 0.5 (0.2-1.3) mg/dL AST 28 (17-59) IU/L ALT 29 (<50) IU/L Alkaline Phosphatase 67 (38-126) U/L Total Protein 7.7 (6.3-8.2) g/dL Albumin 4.6 (3.5-5.0) g/dL Globulin 3.1 (1.7-4.1) g/dL Albumin/Globulin Ratio 1.5 (1.0-2.8) Lipase 56 (23-300) U/L Urine RBC None seen (0-5/HPF) Urine WBC 0-1/hpf (0-5/HPF) Ur Squamous Epith Cells 0-1 /hpf (0-5/HPF) Amorphous Sediment 1+ Urine Bacteria Few (2-10) H (None) Ur Culture Indicated? Specimen cultured Point of care testing: Urine Dip Bedside Urine Glucose Negative Bedside Urine Bilirubin - Negative Bedside Urine Ketone - Negative Urine Specific [place] 1.020 Bedside Urine Occult Blood ++ Bedside Urine pH 7.5 Bedside Urine Protein - Negative Bedside Urine Urobilinogen - Negative Bedside Urine Nitrite - Negative Bedside Urine Leukocytes - Negative Esterase Imaging Data CT scan - abdomen/pelvis: My Impression: PROCEDURE:? CT ABDOMEN PELVIS W CON ? INDICATIONS:? rlq pain, feels week, hematuria ? TECHNIQUE:? After the administration of intravenous contrast, axial sections acquired from the lung bases to the pubic symphysis.? Coronal and sagittal reformats were performed.? For radiation dose reduction, the following was used:? automated exposure control, adjustment of mA and/or kV according to patient size.? ? COMPARISON:? None. ? FINDINGS:? Image quality:? Excellent.? ? Lung bases:? Unremarkable. Heart:? No significant findings. ? ABDOMEN: Liver:? Unremarkable.? ? Gallbladder:? Unremarkable.? ? Biliary ducts:? Unremarkable.? ? Pancreas:? Unremarkable.? ? Spleen:? Unremarkable.? ? Adrenal Glands:? Unremarkable.? ? Kidneys and Ureters:? Unremarkable.? ? ? Stomach and Bowel:? Scattered diverticulosis without evidence of diverticulitis. Peritoneum:? No abnormal intraperitoneal fluid.? No free air.? ? Ventral Wall: ? No hernias.? Abdominal Nodes:? No retroperitoneal or mesenteric adenopathy by size criteria.? Vessels:? Aorta and inferior vena cava are normal in size.? ? PELVIS: Pelvic Organs:? Unremarkable.? ? Bladder:? Unremarkable.? ? Pelvic Nodes: No enlarged lymph nodes.? Miscellaneous: No hernias are seen. ? ? ? Bones:? Unremarkable.? IMPRESSION:? ? 1. No findings which explain the patient's right lower quadrant pain. ? 2. Mild diverticulosis.? ? ? Dictated by: Boby Domínguez M.D. on 07/03/2022 at 14:09 ? ? Approved by: Boby Domínguez M.D. on 07/03/2022 at 14:13 ? [facility] Narrative Medical decision making narrative: This is a 37-year-old male without any significant medical history, denies any abdominal surgeries who presents to the emergency department complaining of right inguinal/flank pain for the last 4 weeks with hematuria tested at his primary care provider approximately 3 weeks ago without any abdominal imaging completed. Patient presents today and has hematuria, tenderness to his right inguinal region without rebound tenderness, or tenderness over McBurney's point, CVA tenderness or abnormal findings CT abdominal in imaging. His lab work is grossly unremarkable in comparison to his previous lab work on 06/19/2022, patient does not have any leukocytosis or anemia, no electrolyte abnormalities, creatinine is 0.79 and is stable compared with prior, lipase is 56. His urine microscopy resulted and shows bacteria without WBCs or RBCs. His CT abdomen pelvis is negative for acute findings to explain the right lower quadrant pain, he does have mild diverticulosis without diverticulitis. His appendix was not mentioned on his abdominal CT report however he does not have rebound tenderness. This is most likely a UTI but patient also has prostate tenderness and hemorrhoids with rectal pain. Will treat with Augmentin to cover for both acute cystitis and colitis/proctitis and a referral to general surgeons for colonoscopy and Urology for his hematuria/acute cystitis was placed. Patient's urine dip showed hematuria but microscopy did not show any significant blood in his urine. Patient denied any dysuria or urinary frequency. No peritoneal signs on abdominal exam. Patient remains p.o. tolerant. Serial abdominal exam without increase in abdominal pain. Given history and exam, low suspicion for acute abdominal process, such as acute appendicitis, cholecystitis, pancreatitis, perforated viscus, atypical appendicitis, colitis, diverticulitis or torsion. Extensive conversation about ER return precautions and need for close follow-up. <Nahomy Foreman, DO - Last Filed: 07/09/22 08:12> Lab Data Labs: Lab Results 07/03/22 07/03/22 07/03/22 Range/Units 10:30 10:30 11:59 WBC 6.1 (4.5-11.0) X10^3/uL RBC 4.50 (4.5-5.9) X10^6/uL Hgb 15.4 (13.5-17.5) g/dL Hct 43.8 (41-53) % MCV 97.4 (80-100) fL MCH 34.2 H (26-34) PG MCHC 35.1 (30-36) % RDW 13.0 (11.6-14.8) % Plt Count 194 (150-400) X10^3/uL Neut % (Auto) 68.7 (50-75) % Lymph % (Auto) 23.0 L (25-40) % [place] % (Auto) 5.6 (3-14) % Eos % (Auto) 1.9 L (2-4) % Baso % (Auto) 0.8 (0-2) % Neut # (Auto) 4200 (6389-2155) /uL Lymph # (Auto) 1400 (8406-7505) /uL [place] # (Auto) 300 (0-900) /uL Eos # (Auto) 100 (0-450) /uL Baso # (Auto) 0 (0-100) /uL Sodium 137 (137-145) mmol/L Potassium 4.8 (3.4-5.1) mmol/L Chloride 102 (98-107) mmol/L Carbon Dioxide 27 (22-32) mmol/L BUN 20 (9-20) mg/dL Creatinine 0.79 (0.66-1.25) mg/dL Estimated GFR > 60 (>60) mL/min BUN/Creatinine Ratio 25.3 H (6-22) Glucose 111 H (70-100) mg/dL Calcium 8.7 (8.4-10.2) mg/dL Total Bilirubin 0.5 (0.2-1.3) mg/dL AST 28 (17-59) IU/L ALT 29 (<50) IU/L Alkaline Phosphatase 67 (38-126) U/L Total Protein 7.7 (6.3-8.2) g/dL Albumin 4.6 (3.5-5.0) g/dL Globulin 3.1 (1.7-4.1) g/dL Albumin/Globulin Ratio 1.5 (1.0-2.8) Lipase 56 (23-300) U/L Urine RBC None seen (0-5/HPF) Urine WBC 0-1/hpf (0-5/HPF) Ur Squamous Epith Cells 0-1 /hpf (0-5/HPF) Amorphous Sediment 1+ Urine Bacteria Few (2-10) H (None) Ur Culture Indicated? Specimen cultured Point of care testing: Urine Dip Bedside Urine Glucose Negative Bedside Urine Bilirubin - Negative Bedside Urine Ketone - Negative Urine Specific [place] 1.020 Bedside Urine Occult Blood ++ Bedside Urine pH 7.5 Bedside Urine Protein - Negative Bedside Urine Urobilinogen - Negative Bedside Urine Nitrite - Negative Bedside Urine Leukocytes - Negative Esterase Discharge Plan Departure Patient Disposition: Home Clinical Impression: Colitis Abdominal right lower quadrant tenderness Qualifiers: Presence of rebound: not specified Qualified Code(s): R10.813 - Right lower quadrant abdominal tenderness Hemorrhoids Qualifiers: Hemorrhoid type: unspecified Qualified Code(s): K64.9 - Unspecified hemorrhoids Acute cystitis Qualifiers: Hematuria presence: with hematuria Qualified Code(s): N30.01 - Acute cystitis with hematuria Instructions: Blood in Urine, Hydrocortisone Rectal, DI for Proctitis Activity Restrictions/Additional Instructions: *You have been diagnosed with right lower quadrant pain and hemorrhoids which may be causing proctitis or proctocolitis since her pain has gone on this long. Please take this antibiotic twice a day for the next 7 days. Please use suppositories as needed for hemorrhoidal pain or bleeding. Please take 800 mg of ibuprofen with food and water every 8 hours as needed for your pain, you may take Tylenol in addition to this as needed. Please call and set up an appointment with Dr. Mondragon for urology evaluation. Please also call and schedule an appointment with [facility] for a colonoscopy/evaluation of your right lower quadrant pain. Please evaluate your insurance and follow-up with your primary care provider for outpatient imaging or referrals as needed. I hope you start feeling better soon. Remember to stay hydrated and to return if this does not get any better. *What to do: *Please continue to take your regular medications as directed. [ x] New medication prescriptions sent to your pharmacy: [[facility] ] [ ] New medication written as a paper prescription [ ] No new medications given *Please follow up with your primary care provider in 2-3 days, call for an appointment. Let them know you were seen in the Emergency Department and that we asked that you be seen for follow-up. We will electronically transmit a record of today's note if your PCP is in our system *If you do not have a primary care provider please contact [phone] to establish care with one of the [facility] primary care providers. *Return to Emergency Department if you should have any new, worsening, or concerning symptoms, such as [fever greater than 101F, chills, worsening pain, persistent vomiting or other bothersome symptoms]. Prescriptions: New amoxicillin-pot clavulanate 875-125 mg tablet 1 tab PO BID 7 Days Qty: 14 0RF hydrocortisone acetate 25 mg suppository 25 mg RI Q12H PRN (Reason: hemorrhoids) 14 Days Qty: 12 0RF No Action oxycodone-acetaminophen [Percocet] 5-325 mg tablet 1 tab PO Q8H PRN (Reason: pain) Qty: 10 0RF methocarbamol 500 mg tablet 500 mg PO Q8H PRN (Reason: muscle spasm) Qty: 14 0RF Referrals: Viet Freeman MD [Physician] - Winston Mondragon MD [Physician] - Lorelei Hall MD [Primary Care Provider] - Visit Report Forms: Patient Portal/API <Nahomy Foreman DO - Last Filed: 07/09/22 08:12> Cosign ED Attending Griffinature Attestation: I was immediately available in the department for consultation. Documentation has been reviewed. I agree with assessment and plan.
[2022-07-03 13:59] LABS: Amorphous Sediment Urine 1+; Bacteria Urine Few (2-10); Culture Indicated Urine Specimen Cultured; RBC Urine None Seen (0-5/HPF); Squamous Epithelial Cell Urine 0-1 /HPF (0-5/HPF); WBC Urine 0-1/HPF (0-5/HPF)
[2022-07-03] MEDS: AMOXICILLIN/CLAV 875/125 MG 1 TAB PO (14:46)
[2022-07-03 14:56] VITALS: BP 155/95; PULSE 67; RESP 18; O2SAT 99
== END 2022-07-03 14:57 | disposition home or self-care (01) ==
PROVIDERS: Emergency Medicine; Emergency Provider Nurse Practitioner Critical Care Medicine; PCP Family Medicine
DX: R10.31 Right lower quadrant pain (principal); K64.9 Unspecified hemorrhoids; N30.01 Acute cystitis with hematuria; K52.9 Noninfective gastroenteritis and colitis, unspecified
CPT/HCPCS: 36415; 74177; 80053; 81003; 81015; 83690; 85025; 87086; 93005; 96360; 96361; 99284; Q9967

== ENCOUNTER 2022-07-24 20:10 | Emergency (ER) | payer SELFPAY ==
[2022-07-24 20:17] VITALS: BP 173/109; PULSE 67; RESP 22; TEMP 36.2; O2SAT 99; BMI 24.4
[2022-07-24 20:25] VITALS: BP 150/97
[2022-07-24 21:47] LABS: Bacteria Urine None Seen; Culture Indicated Urine Cult Not Indicated; RBC Urine 10-30/HPF (0-5/HPF); Squamous Epithelial Cell Urine 0-1 /HPF (0-5/HPF); WBC Urine 1-5/HPF (0-5/HPF)
--- NOTE | 2022-07-25 00:34 | ED_ITS ---
HPI - Abdominal Pain General Chief Complaint: Abdominal Pain Stated Complaint: Antibiotic refill Time Seen by Provider: 07/24/22 21:31 Source: patient Mode of arrival: Ambulatory Limitations: no limitations History of Present Illness HPI narrative: This is a 37-year-old male no known medical issues who presents with right lower quadrant discomfort that was present on his last visit on 07/03/2022. Patient was seen had lab work, CT abdomen pelvis which was negative and urinalysis which did not show infection on culture. Patient's did improve with Augmentin but did not resolve. He denies fevers or chills. No chest pain or shortness of breath, no nausea or vomiting, no diarrhea, no constipation, no dysuria, urgency or frequency, no penile discharge. No testicular pain he states right inguinal region. Patient states he did not have his prostate checked when he was here. He states he is not sexually active currently. No known prior STIs. Patient states he felt much with antibiotics pain improved and almost completely resolved but has returned after finishing them and been off them for a week or 2. Related Data Previous Rx's Medication Instructions Recorded methocarbamol 500 mg tablet 500 mg PO Q8H PRN muscle spasm #14 09/01/21 tabs oxycodone-acetaminophen 5 mg-325 1 tab PO Q8H PRN pain #10 tabs 09/01/21 mg tablet (Percocet) doxycycline hyclate 100 mg tablet 100 mg PO BID 14 days #28 tabs 07/25/22 Allergies Allergy/AdvReac Type Severity Reaction Status Date / Time No Known Drug Allergies Allergy Verified 07/03/22 10:09 Review of Systems Review of Systems ROS Unobtainable: All systems reviewed & are unremarkable except as noted in HPI and below Patient History Social History Smoking Status: Never smoker Smoking Status: Never smoker alcohol intake frequency: holidays/special occasions only Substance Use Type: marijuana Exam Narrative Exam Narrative: GENERAL: Alert and oriented x three, male in mild distress HEENT: Head normocephalic, atraumatic, EOMI, pupils reactive, face symmetric, moist mucous membranes NECK: Supple, full range of motion CARDIOVASCULAR: Regular rate and rhythm without murmurs, rubs or gallops. RESPIRATORY: Breath sounds equal bilaterally, no wheezes rales or rhonchi. ABDOMEN: Soft, very mild right inguinal/lower quadrant tenderness. Normoactive bowel sounds all 4 quadrants. No guarding or rebound, rigidity, no mass, prostate slightly enlarged but not boggy, nontender. : No CVA tenderness. EXTREMITIES: Normal range of motion, no clubbing or edema. Neurovascularly intact NEUROLOGICAL: Cranial nerves II through XII grossly intact. Moving all extremities SKIN: Warm, dry, no petechiae, no rashes or lesions. Initial Vital Signs Initial Vital Signs: Vital Signs Temperature 97.2 F L 07/24/22 20:17 Pulse Rate 67 07/24/22 20:17 Respiratory Rate 22 07/24/22 20:17 Blood Pressure 173/109 H 07/24/22 20:17 Pulse Oximetry 99 07/24/22 20:17 Oxygen Delivery Method 07/24/22 20:17 Course Orders Ordered: ED Orders 07/24/22 21:38 Urine Microscopic Stat 07/25/22 00:33 Chlamydia Gonorrhea PCR -URINE Stat Discontinued Medications Doxycycline Hyclate (Doxycycline Hyclate 100 Mg Tablet) 200 mg PO NOW ONE Stop: 07/25/22 00:41 Last Admin: 07/25/22 00:47 Dose: 200 mg Documented By: TAMMY Vital Signs Vital signs: Vital Signs - 8 hr 07/25/22 00:51 Pulse Rate 66 Respiratory Rate 18 Blood Pressure 158/98 H Pulse Oximetry 100 Oxygen Delivery Method Room Air MDM - Abdominal Pain Lab Data Labs: Lab Results 07/24/22 07/24/22 Range/Units 21:38 21:38 Urine RBC 10-30/hpf H (0-5/HPF) Urine WBC 1-5/hpf (0-5/HPF) Ur Squamous Epith Cells 0-1 /hpf (0-5/HPF) Urine Bacteria None seen (None) Urine Sperm Present (10-30/lpf) Ur Culture Indicated? Cult not indicated Ur Chlamydia DNA (PCR) Not detected N gonorrhoeae DNA (PCR) Not detected Point of care testing: Urine Dip Bedside Urine Glucose Negative Bedside Urine Bilirubin - Negative Bedside Urine Ketone +/- 5 Urine Specific [place] 1.030 Bedside Urine Occult Blood +++ Bedside Urine pH 6.0 Bedside Urine Protein + 30 Bedside Urine Urobilinogen - Negative Bedside Urine Nitrite - Negative Bedside Urine Leukocytes - Negative Esterase MDM Narrative Medical decision making narrative: This is a 37-year-old male who presents with right lower quadrant pain that has been going on for quite some time patient was seen had workup for appendicitis, kidney stones not clearly found has some hematuria today with a few bacteria but no flank pain. Patient's urine culture was negative but he felt much better with Augmentin. Prostate was checked is nontender. Patient had urine GC sent he defers IM treatment prophylactically. Plan to cover with antibiotic and he is in process of following up with Urology and for colonoscopy for further workup but is waiting for his insurance to be active. Patient states that she would be another week or 2. He defers additional workup at this time. Discharge Plan Departure Patient Disposition: Home Clinical Impression: Hematuria, Abdominal pain Activity Restrictions/Additional Instructions: Follow-up as discussed on your last visit with Urology and if this does not help find your symptoms for colonoscopy. You do still have blood in your urine so is important to have urology evaluation and cystoscopy as well. A sample of her urine is currently pending for infection if these are positive we will try to reach out to unless you have been fully treated with your prescription. You may take prescription until gone. Prescription sent to [facility] in [place]. Please return for fevers, worsening or new abdominal, back or flank pain, difficulty with urination, testicular pain, black or bloody stools or other new or concerning symptoms. Prescriptions: New doxycycline hyclate 100 mg tablet 100 mg PO BID 14 Days Qty: 28 0RF No Action oxycodone-acetaminophen [Percocet] 5-325 mg tablet 1 tab PO Q8H PRN (Reason: pain) Qty: 10 0RF methocarbamol 500 mg tablet 500 mg PO Q8H PRN (Reason: muscle spasm) Qty: 14 0RF Referrals: Lorelei Hall MD [Primary Care Provider] - Visit Report Forms: Patient Portal/API
[2022-07-25] MEDS: DOXYCYCLINE HYCLATE 100 MG TABLET 200 MG PO (00:47)
[2022-07-25 00:51] VITALS: BP 158/98; PULSE 66; RESP 18; O2SAT 100
[2022-07-25 06:24] LABS: Urine N gonorrhoeae NOT DETECTED
[2022-07-25 06:26] LABS: Urine Chlamydia NOT DETECTED
== END 2022-07-25 00:53 | disposition home or self-care (01) ==
PROVIDERS: Emergency Provider Emergency Medicine; PCP Family Medicine
DX: R10.31 Right lower quadrant pain (principal); R31.9 Hematuria, unspecified
CPT/HCPCS: 81003; 81015; 87491; 87591; 99283

== ENCOUNTER 2022-11-16 06:18 | Emergency (ER) | payer SELFPAY ==
[2022-11-16 06:37] VITALS: BP 169/103; PULSE 70; RESP 16; TEMP 37; O2SAT 98; BMI 25.7
--- NOTE | 2022-11-16 06:54 | ED.MALEGU ---
HPI - Male Genitourinary General Chief complaint: Urogenital-Male Stated complaint: abd. pain Time Seen by Provider: 11/16/22 06:54 Source: patient Mode of arrival: Ambulatory History of Present Illness HPI Narrative: 37-year-old male nonsmoker presents with episodes of lower abdominal discomfort and urinary symptoms off and on since March. He states that he has been seen and evaluated on multiple occasions and found to have microscopic blood in his urine. He has been seen here on multiple occasions and had extensive workups including urine, labs and even CT scans without significant findings. He states that he has been having foul-smelling urine and some recurrence of his symptoms over the past few days. He went to his primary care office a few days ago and reports that he had blood in his urine and was told that if he ever experiences decreased urine output or trouble with his flow he should immediately present to the emergency department. He is not dizzy nor weak or lightheaded. He denies any fever or chills. He denies chest pain or shortness of breath. He does have some vague lower abdominal discomfort but admits that it is not significant. He denies any obvious provocation or palliation and states that he does not currently feel like he needs to urinate Related Data Previous Rx's Medication Instructions Recorded methocarbamol 500 mg tablet 500 mg PO Q8H PRN muscle spasm #14 09/01/21 tabs oxycodone-acetaminophen 5 mg-325 1 tab PO Q8H PRN pain #10 tabs 09/01/21 mg tablet (Percocet) Allergies Allergy/AdvReac Type Severity Reaction Status Date / Time No Known Drug Allergies Allergy Verified 07/03/22 10:09 Review of Systems Review of Systems Narrative: GENERAL: Denies chills, fatigue, malaise, fever, sweats. HEENT: Denies sinus pain, ear pain, sore throat, difficulty swallowing, dizziness. RESPIRATORY: Denies dyspnea, cough, wheezing, hemoptysis, sputum. CARDIOVASCULAR: Denies chest pain, palpitations, orthopnea, edema, GASTROINTESTINAL: See HPI : See HPI MUSCULOSKELETAL: denies weakness, joint pain, or bony pain SKIN: Denies rash, skin lesions, or other NEUROLOGIC: Denies weakness, headache, numbness, change in speech, confusion, seizures, incoordination. PSYCHIATRIC: No concerning psychosocial issues. 12 point review of systems is negative except for those stated above Patient History Social History Smoking Status: Never smoker Smoking Status: Never smoker alcohol intake frequency: 0-2 drinks per day Substance Use Type: marijuana Exam Narrative Exam Narrative: GENERAL: [37] year old patient appears stated age. Well-developed patient, in mild distress. HEAD: Atraumatic. Normocephalic. EYES: Pupils equal round and reactive. Extraocular motions intact. No scleral icterus. No injection or drainage. ENT: Nose without bleeding, purulent drainage. Throat without erythema, tonsillar hypertrophy or exudate. Airway patent. NECK: Trachea midline. Non tender CARDIOVASCULAR: Regular rate and rhythm without murmurs, gallops, or rubs. RESPIRATORY: Clear to auscultation. Breath sounds equal bilaterally. No wheezes, rales, or rhonchi. GASTROINTESTINAL: Abdomen soft, non-tender, nondistended. EXTREMITIES: No edema or joint tenderness. BACK: Nontender without deformity or crepitance. No flank tenderness. NEURO: AOx3. SKIN: No rash or erythema of visible areas Initial Vital Signs Initial Vital Signs: Vital Signs Temperature 98.6 F 11/16/22 06:37 Pulse Rate 70 11/16/22 06:37 Respiratory Rate 16 11/16/22 06:37 Blood Pressure 169/103 H 11/16/22 06:37 Pulse Oximetry 98 11/16/22 06:37 Oxygen Delivery Method 11/16/22 06:37 Course Orders Ordered: ED Orders 11/16/22 06:40 Consult to [employer] - [employer] Stat Vital Signs Vital signs: Vital Signs - 8 hr 11/16/22 06:37 Temperature 98.6 F Pulse Rate 70 Respiratory Rate 16 Blood Pressure 169/103 H Pulse Oximetry 98 Oxygen Delivery Method Room Air MDM - Male Genitourinary Lab Data Labs: Urine Dip Bedside Urine Glucose Negative Bedside Urine Bilirubin - Negative Bedside Urine Ketone - Negative Urine Specific [place] 1.010 Bedside Urine Occult Blood +++ Bedside Urine pH 6.0 Bedside Urine Protein - Negative Bedside Urine Urobilinogen - Negative Bedside Urine Nitrite - Negative Bedside Urine Leukocytes - Negative Esterase MDM Narrative Medical decision making narrative: [37-year-old male with ongoing episodes microscopic, painless hematuria in the absence of infection] Multiple etiologies for patient's symptoms considered including, but not limited to: [Kidney stone, UTI, prostate abnormality versus other] Prior Charts reviewed: Most recent visit here in June demonstrated significant workup with no notable lab or imaging abnormalities Labs reviewed and interpreted by myself: Urine with microscopic hematuria but no evidence of infection Given patient's ongoing symptoms we discussed whether we would gain much from doing a more thorough evaluation today including more labs and imaging and sure the opinion that it is unlikely to change the plan and that the most appropriate step would be follow-up with urology Findings and discharge diagnosis discussed with patient/family followed by verbalization of understanding Return precautions discussed with patient/family whom verbalize understanding of diagnosis and plan Discharge Plan Departure Patient Disposition: Home Clinical Impression: Hematuria Instructions: DI for Hematuria Activity Restrictions/Additional Instructions: *You have been diagnosed with [hematuria. As we discussed there is no evidence of infection and given the relative chronicity of the symptoms and prior lab work and CTs we will hold off for now] *What to do: *Please follow up with Dr. Mondragon or Dr. Mills (our local urologists), call for an appointment. Let them know you were seen in the Emergency Department and that we ask that you be seen in follow up. We will electronically transmit a record of today's note *Return to Emergency Department if you should have any new, worsening or concerning symptoms, such as [fever greater than 101 F, shaking chills, worsening pain, persistent vomiting or other bothersome symptoms] Prescriptions: No Action oxycodone-acetaminophen [Percocet] 5-325 mg tablet 1 tab PO Q8H PRN (Reason: pain) Qty: 10 0RF methocarbamol 500 mg tablet 500 mg PO Q8H PRN (Reason: muscle spasm) Qty: 14 0RF Referrals: Winston Mondragon MD [Physician] - Lorelei Hall MD [Primary Care Provider] - Stand Alone Forms: Patient Portal/API
[2022-11-16 08:15] VITALS: BP 146/76; PULSE 70; RESP 18; TEMP 36.6; O2SAT 100
== END 2022-11-16 08:20 | disposition home or self-care (01) ==
PROVIDERS: Emergency Provider Emergency Medicine; PCP Family Medicine
DX: R31.9 Hematuria, unspecified (principal)
CPT/HCPCS: 51798; 81003; 99282